=== PATIENT | male | born 1995 | race American Indian/Alaskan Native ===

== ENCOUNTER 2016-06-13 13:22 | Emergency (ER) | payer SELFPAY ==
[2016-06-13] MEDS ORDERED: MOTRIN PO ONE (17:52)
--- NOTE | 2016-06-13 17:55 | Emergency Department Report ---
Entered by NASRIN ADHIKARI, acting as scribe for TWILA LINDA PA. ED General Adult HPI - General Chief complaint: Pain General Stated complaint: HEMORRHOIDS Source: patient Mode of arrival: Ambulatory Limitations: No Limitations - History of Present Illness Initial comments: 21 year old male presents to the ED for evaluation of painful hemorrhoid for months that worsened 5 days ago. Patient rates his pain as a 9/10. He states pain worsens with standing and alleviates while sleeping. He has used Preparation H with no relief in symptoms. Denies abdominal pain, constipation, N /V/D, rectal discharge or bleeding, fever and chills. -: month(s) (began several months ago and worsened 5 days ago) Location: buttocks Radiation: non-radiation Severity scale (0 -10): 9 Consistency: constant Improves with: rest, other (sleep) Worsens with: other (sitting) Associated Symptoms: denies: fever/chills, nausea/vomiting, other (constipation , diarrhea, rectal bleeding or discharge) Treatments Prior to Arrival: other (Preparation H) - Related Data Previous Rx's Medication Instructions Recorded Last Taken Type Hydrocortisone [Anucort-HC SUPPOS] 25 mg RC BID #1 box 06/13/16 Unknown Rx Allergies Allergy/AdvReac Type Severity Reaction Status Date / Time No Known Allergies Allergy Unverified 06/13/16 14:11 ED Review of Systems Comment: All other systems reviewed and negative Constitutional: denies: chills, fever Gastrointestinal: as per HPI, other (Reports rectal pain, hemorroid. Denies rectal bleeding, discharge). denies: abdominal pain, nausea, vomiting, diarrhea , constipation ED Past Medical Hx - Past Medical History Previous Medical History?: No - Surgical History Past Surgical History?: No - Social History Smoking Status: Current Every Day Smoker Substance Use Type: Alcohol, Marijuana - Medications Home Medications: Home Medications Medication Instructions Recorded Confirmed Last Taken Type Hydrocortisone [Anucort-HC SUPPOS] 25 mg RC BID #1 box 06/13/16 Unknown Rx ED Physical Exam - General Limitations: No Limitations General appearance: alert, in no apparent distress - Head Head exam: Present: atraumatic, normocephalic - Eye Eye exam: Present: normal appearance, PERRL, EOMI - Neck Neck exam: Present: normal inspection, full ROM - GI/Abdominal GI/Abdominal exam: Present: soft. Absent: distended, tenderness, guarding, rebound - Rectal Rectal exam: Present: hemorrhoids (mildly thrombosed interior hemorrhoid. 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 Absent: rash ED Course Vital Signs 06/13/16 14:11 Temperature 97.7 F Pulse Rate 70 Respiratory 18 Rate Blood Pressure 126/65 O2 Sat by Pulse 99 Oximetry ED Medical Decision Making - Medical Decision Making After detailed patient history and physical exam by provider in [facility], clinical impression is internal hemorrhoid. Discussed importance of high fiber diet and drinking 2-3 liters of water each day. Advised patient to avoid heavy lifting and straining with bowel movement as it may exacerbate symptoms. Patient will be discharged with instructions for hemorrhoids and encouraged to follow up with primary care physician ED Disposition Clinical Impression: Acute hemorrhoid Disposition: DISCHARGED TO HOME OR SELFCARE Is pt being admited?: No Does the pt Need Aspirin: No Condition: Stable Instructions: Hemorrhoids (ED), High Fiber Diet (ED) Additional Instructions: High fiber diet and drinking 2-3 liters of water each day. Advised patient to avoid heavy lifting and straining with bowel movement as it may exacerbate symptoms. Prescriptions: Hydrocortisone [Anucort-HC SUPPOS] 25 mg RC BID #1 box Referrals: PRIMARY CARE, [Primary Care Provider] - 3-5 Days [facility] [Outside] - 3-5 Days Forms: Work/School Release Form(ED) This documentation as recorded by the ZEYNEP guzmán REBEKAH,accurately reflects the service I personally performed and the decisions made by me,TWILA LINDA PA.
[2016-06-13 18:03] VITALS: BP 126/70
== END 2016-06-13 18:02 | disposition home or self-care (01) ==
LOC: ED 13:22
DX: K64.8 Other hemorrhoids (principal); F17.200 Nicotine dependence, unspecified, uncomplicated; F12.10 Cannabis abuse, uncomplicated
CPT/HCPCS: 99282